=== PATIENT | male | born 1990 | race Caucasian/White ===

== ENCOUNTER 2018-01-01 11:26 | Emergency (ER) | payer MEDICAID, OTHER ==
[~2018-01-01] VITALS: Ht 180.3 cm; Wt 85.8 kg
[2018-01-01 11:55] VITALS: BP 148/89
== END 2018-01-01 12:46 | disposition home or self-care (01) ==
LOC: ED 12:00
DX: L20.9 Atopic dermatitis, unspecified (principal); L20.84 Intrinsic (allergic) eczema
CPT/HCPCS: 99283

== ENCOUNTER 2018-05-13 23:31 | Emergency (ER) | payer MEDICAID ==
[~2018-05-13] VITALS: Ht 180.3 cm; Wt 77.0 kg
[2018-05-13] MEDS ORDERED: HYDROcodone/APAP 5/325 TABLET ONE (23:50)
[2018-05-14] MEDS ORDERED: HYDROcodone/APAP 5/325 TABLET PO PRN
--- NOTE | 2018-05-14 00:12 | NUR ---
PT MEDICATED FOR PAIN. PT HAS NO OTHER NEEDS AT THIS TIME. CALL LIGHT IN REACH
--- NOTE | 2018-05-14 00:29 | NUR ---
ANGELLA RN: PT RESTING IN ROOM. NO ACUTE DISTRESS NOTED. CALL LIGHT IN PLACE. WILL CONTINUE TO MONITOR.
--- NOTE | 2018-05-14 00:45 | NUR ---
ANGELLA RN: DR PEÑA HAS UPDATED PATIENT.
--- NOTE | 2018-05-14 00:49 | NUR ---
REPORT GIVEN TO DORIS FELTON
--- NOTE | 2018-05-14 01:15 | NUR ---
Patient given discharge instructions and they have confirmed that they understand the instructions. Patient ambulatory with steady gait.
[2018-05-14 01:16] VITALS: BP 135/81
== END 2018-05-14 01:18 | disposition home or self-care (01) ==
LOC: ED 05-14 01:10
DX: S62.326A Displaced fracture of shaft of fifth metacarpal bone, right hand, initial encounter for closed fracture (principal); X58.XXXA Exposure to other specified factors, initial encounter; Y93.89 Activity, other specified; Y92.89 Other specified places as the place of occurrence of the external cause; Y99.8 Other external cause status
CPT/HCPCS: 29125; 99283

== ENCOUNTER 2018-05-24 23:28 | Emergency (ER) | payer MEDICAID ==
[~2018-05-24] VITALS: Ht 180.3 cm; Wt 75.7 kg
[2018-05-24 23:31] VITALS: BP 121/85
[2018-05-25 00:55] LABS: BASOPHILS # (AUTO) 0.04 x10^3/uL (0-0.1); BASOPHILS % (AUTO) 1 % (0-1); EOSINOPHILS # (AUTO) 0.14 x10^3/uL (0-0.4); EOSINOPHILS % (AUTO) 2 % (1-7); LYMPHOCYTES # (AUTO) 3.01 x10^3/uL (1-3.4); LYMPHOCYTES % (AUTO) 38 % (22-44); MD NO; MEAN CORPUSCULAR HEMOGLOBIN 29.9 pg (27.5-34.5); MEAN CORPUSCULAR VOLUME 88.1 fL (81-97); MEAN PLATELET VOLUME 8.1 fL (7.4-10.4); MONOCYTES # (AUTO) 0.76 x10^3/uL (0.2-0.8); MONOCYTES % (AUTO) 10 % (2-9); NEUTROPHILS # (AUTO) 4.03 x10^3/uL (1.8-6.8); NEUTROPHILS % (AUTO) 51 % (42-75); PLATELET COUNT 339 x10^3/uL (130-400); RED BLOOD COUNT 4.78 x10^6/uL (4.38-5.82)
[2018-05-25 00:56] LABS: HCT (SEDRATE) 42.1 % (39.2-51.8)
[2018-05-25] MEDS ORDERED: SULFAMETH./TRIMETHOPRIM DS 800MG/160MG TABLET PO ONE (01:00)
[2018-05-25] MEDS ORDERED: CEPHALEXIN 500 MG CAPSULE PO ONE (01:00)
[2018-05-25] MEDS ORDERED: HYDROcodone/APAP 5/325 TABLET ONE (01:06)
[2018-05-25 01:07] LABS: ALANINE AMINOTRANSFERASE 25 U/L (12-78); ALBUMIN 3.8 g/dL (3.4-5.0); ANION GAP 6 mmol/L (5-15); C-REACTIVE PROTEIN, QUANT 0.63 mg/dL (0.02-0.49); CALCIUM 8.7 mg/dL (8.5-10.1); CHLORIDE 111 mmol/L (98-107); CREATININE 1.09 mg/dL (0.7-1.3)
[2018-05-25 01:09] LABS: ALKALINE PHOSPHATASE 102 U/L (45-117); BILIRUBIN,TOTAL 0.4 mg/dL (0.2-1.0); TOTAL PROTEIN 7.5 g/dL (6.4-8.2)
[2018-05-25] MEDS ORDERED: CEPHALEXIN 500 MG CAPSULE ONE (01:13)
[2018-05-25] MEDS ORDERED: SULFAMETH./TRIMETHOPRIM DS 800MG/160MG TABLET ONE (01:13)
[2018-05-25] MEDS ORDERED: BACITRACIN ZINC OINT 500U/GM, 0.9 GM ONE (01:26)
[2018-05-25] MEDS ORDERED: HYDROcodone/APAP 5/325 TABLET PO ONE (01:30)
== END 2018-05-25 02:23 | disposition home or self-care (01) ==
LOC: ED 05-25 00:38
DX: S62.326A Displaced fracture of shaft of fifth metacarpal bone, right hand, initial encounter for closed fracture (principal); L02.413 Cutaneous abscess of right upper limb; X58.XXXA Exposure to other specified factors, initial encounter; Y93.89 Activity, other specified; Y92.89 Other specified places as the place of occurrence of the external cause; Y99.8 Other external cause status
CPT/HCPCS: 10060; 36415; 80053; 83605; 84145; 85025; 85651; 86140; 87040; 99284

== ENCOUNTER 2019-01-19 20:28 | Emergency (ER) | payer MEDICAID ==
[~2019-01-19] VITALS: Ht 180.3 cm; Wt 71.7 kg
[2019-01-19 20:51] VITALS: BP 139/91
== END 2019-01-19 21:38 | disposition home or self-care (01) ==
LOC: ED 21:00
DX: H10.12 Acute atopic conjunctivitis, left eye (principal); H00.015 Hordeolum externum left lower eyelid
CPT/HCPCS: 99283

== ENCOUNTER 2019-07-31 02:29 | Emergency (ER) | payer MEDICAID ==
[~2019-07-31] VITALS: Ht 175.3 cm; Wt 78.6 kg
--- NOTE | 2019-07-31 02:35 | NUR ---
THIS IS A 29Y M BIB EMS. PT WAS SMOKING "[place] WHITE" AND BLACKED OUT. PT WAS FOUND UNRESPONSIVE W/ CPR IN PROGRESS WHEN EMS ARRIVED. PT HAD A RA SAT OF 50% PT WAS BAGGED AND GIVEN A TOTAL OF 1MG OF NARCAN. PT ARRIVED GCS 15 AND A/O4. PT CONNECTED TO ALL MONITORING VSS, NADN AT THIS TIME.
--- NOTE | 2019-07-31 02:41 | NUR ---
GIRLFRIEND CALLED AT PT REQUEST
[2019-07-31] MEDS ORDERED: ONDANSETRON 2MG/ML, 2ML ONE ×2 (03:21→03:49)
[2019-07-31 03:23] VITALS: BP 157/99
--- NOTE | 2019-07-31 03:26 | NUR ---
PT VOMITING REQ MEDICATION FOR THIS, ADMINISTRATIVE HEARING OFFICER UPDATED ON PT REQUEST, ADDITIONAL ORDER AT THIS TIME. PT MEDICATED PER POOJA PATEL NOW AT BEDSIDE NO FURTHER NEEDS AT THIS TIME
[2019-07-31] MEDS ORDERED: ONDANSETRON 2MG/ML, 2ML IVPush ONE ×2 (03:30→04:00)
== END 2019-07-31 05:02 | disposition home or self-care (01) ==
LOC: ED 04:28
DX: T40.1X1A Poisoning by heroin, accidental (unintentional), initial encounter (principal); F11.129 Opioid abuse with intoxication, unspecified; R00.0 Tachycardia, unspecified; F17.210 Nicotine dependence, cigarettes, uncomplicated
CPT/HCPCS: 93005; 96374; 99283; 99406; J2405

== ENCOUNTER 2019-09-07 17:26 | Emergency (ER) | payer MEDICAID ==
[~2019-09-07] VITALS: Ht 180.3 cm; Wt 84.8 kg
[2019-09-07 17:31] VITALS: BP 141/92
--- NOTE | 2019-09-07 19:17 | NUR ---
Called back to go into room. NILx1.
--- NOTE | 2019-09-07 19:32 | NUR ---
NILx2 @1933
--- NOTE | 2019-09-07 19:43 | NUR ---
NILx2
== END 2019-09-07 19:45 | disposition left against medical advice (07) ==
LOC: ED 19:35
DX: R07.89 Other chest pain (principal); Z53.21 Procedure and treatment not carried out due to patient leaving prior to being seen by health care provider
CPT/HCPCS: 93005

== ENCOUNTER 2019-09-18 23:41 | Emergency (ER) | payer MEDICAID ==
[~2019-09-18] VITALS: Ht 180.3 cm; Wt 81.9 kg
[2019-09-18 23:49] VITALS: BP 122/81
--- NOTE | 2019-09-19 00:25 | NUR ---
PT AMBULATED TO ROOM 25 C/O REFLUX SINCE YESTERDAY AM WITH ONE EPISODE OF VOMITTING. PT HAS HX OF REFLUX THAT HAS BEEN WORSENING LATELY, OFTEN TAKING DOUBLE THE PRESCRIBED ANTIACID HE IS SUPPOSE TO. PT A&OX4, MONITORS IN PLACE.
[2019-09-19] MEDS ORDERED: MAALOX/HYOSCYAMINE/LIDOCAINE 45 ML BTL ONE (00:27)
[2019-09-19] MEDS ORDERED: OMEPRAZOLE 20 MG CAPSULE.DR ONE (00:27)
[2019-09-19] MEDS ORDERED: ONDANSETRON ODT 4 MG ONE (00:29)
[2019-09-19] MEDS ORDERED: ONDANSETRON ODT 4 MG PO ONE (00:30)
[2019-09-19] MEDS ORDERED: FAMOTIDINE 20 MG TABLET PO ONE (00:30)
[2019-09-19] MEDS ORDERED: MAALOX/HYOSCYAMINE/LIDOCAINE 45 ML BTL PO ONE (00:30)
[2019-09-19] MEDS ORDERED: FAMOTIDINE 20 MG TABLET ONE (00:31)
[2019-09-19 00:42] LABS: BASOPHILS # (AUTO) 0.05 x10^3/uL (0-0.1); BASOPHILS % (AUTO) 1 % (0-1); EOSINOPHILS # (AUTO) 0.32 x10^3/uL (0-0.4); EOSINOPHILS % (AUTO) 4 % (1-7); LYMPHOCYTES # (AUTO) 3.09 x10^3/uL (1-3.4); LYMPHOCYTES % (AUTO) 41 % (22-44); MD NO; MEAN CORPUSCULAR HEMOGLOBIN 30.1 pg (27.5-34.5); MEAN CORPUSCULAR HGB CONC 33.3 g/dL (33.2-36.2); MEAN CORPUSCULAR VOLUME 90.4 fL (81-97); MEAN PLATELET VOLUME 8.3 fL (7.4-10.4); MONOCYTES # (AUTO) 0.68 x10^3/uL (0.2-0.8); MONOCYTES % (AUTO) 9 % (2-9); NEUTROPHILS # (AUTO) 3.37 x10^3/uL (1.8-6.8); NEUTROPHILS % (AUTO) 45 % (42-75); PLATELET COUNT 312 x10^3/uL (130-400); RED BLOOD COUNT 5.23 x10^6/uL (4.38-5.82); RED CELL DISTRIBUTION WIDTH 13.2 % (9.4-14.8)
[2019-09-19 00:49] LABS: ALANINE AMINOTRANSFERASE 58 U/L (12-78); ALBUMIN 3.7 g/dL (3.4-5.0); ANION GAP 5 mmol/L (5-15); CALCIUM 9.4 mg/dL (8.5-10.1); CHLORIDE 109 mmol/L (98-107)
[2019-09-19 00:52] LABS: ALKALINE PHOSPHATASE 105 U/L (45-117); BILIRUBIN,TOTAL 0.6 mg/dL (0.2-1.0); TOTAL PROTEIN 7.7 g/dL (6.4-8.2)
== END 2019-09-19 01:38 ==
LOC: ED 23:42
DX: K21.9 Gastro-esophageal reflux disease without esophagitis (principal); R94.31 Abnormal electrocardiogram [ECG] [EKG]
CPT/HCPCS: 36415; 80053; 83690; 85025; 93005; 99284; Q0162

== ENCOUNTER 2020-03-15 02:24 | Emergency (ER) | payer MEDICAID ==
[~2020-03-15] VITALS: Ht 180.3 cm; Wt 79.9 kg
[2020-03-15 02:27] VITALS: BP 137/88
--- NOTE | 2020-03-15 02:36 | NUR ---
SUBSTATION ENGINEER: FLETCHER X 1 WHEN CALLED FOR TRIAGE. Addendum: 03/15/20 at 0236 by KAVYA WHEN CALLED FOR ROOM NOT TRIAGE.
--- NOTE | 2020-03-15 02:42 | NUR ---
PREFITTER: NIL X 2 WHEN CALLED FOR ROOM.
--- NOTE | 2020-03-15 03:05 | NUR ---
GAS INSPECTOR: NIL X 3 WHEN CALLED FOR ROOM.
== END 2020-03-15 03:06 | disposition left against medical advice (07) ==
LOC: ED 02:45
DX: M79.642 Pain in left hand (principal); Z53.21 Procedure and treatment not carried out due to patient leaving prior to being seen by health care provider

== ENCOUNTER 2020-10-06 22:55 | Emergency (ER) | payer MEDICAID ==
[~2020-10-06] VITALS: Ht 180.3 cm; Wt 81.0 kg
[2020-10-06] MEDS ORDERED: MAALOX/HYOSCYAMINE/LIDOCAINE 45 ML BTL PO ONE (23:30)
[2020-10-06 23:59] LABS: BASOPHILS % (AUTO) 1 % (0-1); EOSINOPHILS % (AUTO) 7 % (1-7); LYMPHOCYTES % (AUTO) 49 % (22-44); MEAN CORPUSCULAR HEMOGLOBIN 31.8 pg (27.5-34.5); MEAN CORPUSCULAR HGB CONC 34.2 g/dL (33.2-36.2); MEAN PLATELET VOLUME 7.9 fL (7.4-10.4); MONOCYTES % (AUTO) 10 % (2-9); NEUTROPHILS % (AUTO) 33 % (42-75); PLATELET COUNT 289 x10^3/uL (130-400); RED BLOOD COUNT 4.44 x10^6/uL (4.38-5.82); RED CELL DISTRIBUTION WIDTH 14.4 % (9.4-14.8)
[2020-10-07 00:11] LABS: ALANINE AMINOTRANSFERASE 34 U/L (12-78); ALBUMIN 3.5 g/dL (3.4-5.0); ANION GAP 6 mmol/L (5-15); CALCIUM 8.1 mg/dL (8.5-10.1); CHLORIDE 111 mmol/L (98-107); CREATININE 1.16 mg/dL (0.7-1.3)
[2020-10-07 00:14] LABS: ALKALINE PHOSPHATASE 92 U/L (45-117); BILIRUBIN,TOTAL 0.2 mg/dL (0.2-1.0); TOTAL PROTEIN 7.2 g/dL (6.4-8.2)
[2020-10-07] MEDS ORDERED: MAALOX/HYOSCYAMINE/LIDOCAINE 45 ML BTL ONE (00:57)
[2020-10-07 01:52] VITALS: BP 150/77
--- NOTE | 2020-10-07 02:11 | NUR ---
Patient/Caregiver given discharge instructions and they have confirmed that they understand the instructions. Patient ambulatory with steady gait. NAD, all questions answered appropriately, denies additional needs at this time. No personal belongings left in room after discharge.
== END 2020-10-07 02:12 | disposition home or self-care (01) ==
LOC: ED 23:25
DX: R07.89 Other chest pain (principal); K21.00 Gastro-esophageal reflux disease with esophagitis, without bleeding; R94.31 Abnormal electrocardiogram [ECG] [EKG]; F17.210 Nicotine dependence, cigarettes, uncomplicated
CPT/HCPCS: 36415; 71045; 80053; 83690; 85025; 93005; 99406